=== PATIENT | female | born 1980 | race Caucasian/White ===

== ENCOUNTER → 2021-06-22 | Outpatient (CLI) | payer OTHER ==
[~2021-06-22] MED LIST: DERMOPLAST SPRA56 ML TOP; IBUPROFEN 600600 M1 PO; LAN-O-SOOTHE56 GM TOP; PRENATAL COMPL1 EACH; TL-FOL 500 CAP1 EACH PO; TUCKS1 EAC1 PAD
== END ==
LOC: M.RAD 10:30
PROVIDERS: ATTEND Obstetrics & Gynecology
DX: Z12.31 Encounter for screening mammogram for malignant neoplasm of breast (principal); N64.89 Other specified disorders of breast